=== PATIENT | female | born 1995 | race Caucasian/White ===

== ENCOUNTER 2017-08-25 22:34 | Emergency (ER) | payer MEDICAID ==
[2017-08-25 23:32] LABS: BASOPHILS 0.3 % (0-2); EOSINOPHILS 2.6 % (0-7); HEMATOCRIT 37.3 % (36.0-48.0); HEMOGLOBIN 12.5 g/dL (12-16); IMMATURE GRANULOCYTES 0.2 % (0-5); LYMPHOCYTES 28.6 % (15-50); MCH 28.5 pg (26.0-34.0); MCHC 33.5 g/dL (31.0-37.0); MCV 85.2 fL (80.0-100.0); MEAN PLATELET VOLUME 8.8 fL (7.4-10.4); MONOCYTES 10.8 % (2-11); NEUTROPHILS 57.5 % (40-80); PLATELET COUNT 292 10x3/uL (130-400); RBC 4.38 10x6/uL (4.00-5.40); RDW 13.4 % (11.5-14.5); WBC 11.8 10x3/uL (4.8-10.8)
[2017-08-25 23:47] LABS: ALBUMIN 3.8 g/dL (3.4-5.0); ALKALINE PHOSPHATASE 59 U/L (46-116); ALT (SGPT) 18 U/L (10-68); BILIRUBIN - TOTAL 0.21 mg/dL (0.2-1.3); CALC OSMOLALITY 272 mosm/kg (275-300); CARBON DIOXIDE 23.7 mmol/L (21.0-32.0); CHLORIDE - SERUM 103 mmol/L (98-107); CREATININE - SERUM 0.7 mg/dL (0.6-1.3); GLUCOSE 98 mg/dL (74-106); POTASSIUM - SERUM 3.4 mmol/L (3.5-5.1); PROTEIN - SERUM 7.4 g/dL (6.4-8.2); SODIUM 137 mmol/L (136-145); UREA NITROGEN 10 mg/dL (7-18); eGFR NON AFRICAN AMERICAN > 90 mL/min (90-120)
[2017-08-26 00:13] LABS: HCG - QUANTITATIVE (MATERNAL) 41874 mIU/mL
== END 2017-08-26 01:00 | disposition home or self-care (01) ==
LOC: D.ER 22:34
PROVIDERS: Emergency Medicine
DX: O26.891 Other specified pregnancy related conditions, first trimester (principal); Z3A.00 Weeks of gestation of pregnancy not specified; R10.9 Unspecified abdominal pain; F17.200 Nicotine dependence, unspecified, uncomplicated

== ENCOUNTER 2017-09-25 22:57 | Emergency (ER) | payer MEDICAID ==
[2017-09-25 23:41] LABS: HEMATOCRIT 38.7 % (36.0-48.0); HEMOGLOBIN 13.3 g/dL (12-16); MCH 28.8 pg (26.0-34.0); MCHC 34.4 g/dL (31.0-37.0); MCV 83.8 fL (80.0-100.0); MEAN PLATELET VOLUME 8.3 fL (7.4-10.4); NEUTROPHILS 66.3 % (40-80); PLATELET COUNT 312 10x3/uL (130-400); RBC 4.62 10x6/uL (4.00-5.40); WBC 12.9 10x3/uL (4.8-10.8)
[2017-09-25 23:48] LABS: APPEARANCE SLT CLOUDY (CLEAR); BILIRUBIN NEGATIVE (NEGATIVE); COLOR YELLOW (YELLOW); GLUCOSE NEGATIVE (NEGATIVE); KETONE NEGATIVE (NEGATIVE); NITRITE NEGATIVE (NEGATIVE); PROTEIN TRACE mg/dL (NEGATIVE); UROBILINOGEN NORMAL (NORMAL)
[2017-09-25 23:49] LABS: BACTERIA MODERATE /hpf (NONE SEEN); EPITHELIAL CELLS 0-5 /hpf (0-5); RED CELLS - URINE 0-5 /hpf (0-5)
[2017-09-25 23:50] LABS: MUCUS <1+ /lpf (NONE SEEN)
[2017-09-25 23:51] LABS: HCG SERUM POSITIVE (NEGATIVE)
[2017-09-25 23:52] LABS: ALBUMIN 3.8 g/dL (3.4-5.0); ALKALINE PHOSPHATASE 63 U/L (46-116); ALT (SGPT) 18 U/L (10-68); BILIRUBIN - TOTAL 0.21 mg/dL (0.2-1.3); CALC OSMOLALITY 275 mosm/kg (275-300); CALCIUM 9.1 mg/dL (8.5-10.1); CARBON DIOXIDE 24.8 mmol/L (21.0-32.0); CHLORIDE - SERUM 102 mmol/L (98-107); CREATININE - SERUM 0.6 mg/dL (0.6-1.3); GLUCOSE 88 mg/dL (74-106); POTASSIUM - SERUM 3.6 mmol/L (3.5-5.1); PROTEIN - SERUM 7.8 g/dL (6.4-8.2); SODIUM 138 mmol/L (136-145); UREA NITROGEN 16 mg/dL (7-18); eGFR NON AFRICAN AMERICAN > 90 mL/min (90-120)
[2017-09-26 00:15] LABS: HCG - QUANTITATIVE (MATERNAL) 44350 mIU/mL
== END 2017-09-26 00:22 | disposition home or self-care (01) ==
LOC: D.ER 22:57
PROVIDERS: Emergency Medicine
DX: O23.41 Unspecified infection of urinary tract in pregnancy, first trimester (principal); Z3A.09 9 weeks gestation of pregnancy

== ENCOUNTER → 2018-01-16 11:36 | Outpatient (CLI) | payer MEDICAID | END | disposition home or self-care (01) | LOC: D.CN 11:30 | DX: R07.9 Chest pain, unspecified (principal) ==

== ENCOUNTER → 2018-03-13 10:39 | Outpatient (CLI) | payer MEDICAID | END | disposition home or self-care (01) | LOC: D.LDO 10:39 | DX: O26.893 Other specified pregnancy related conditions, third trimester (principal); Z3A.34 34 weeks gestation of pregnancy ==

== ENCOUNTER → 2018-04-03 12:19 | Outpatient (CLI) | payer MEDICAID ==
[2018-04-03 13:27] LABS: APPEARANCE HAZY (CLEAR); BILIRUBIN NEGATIVE (NEGATIVE); COLOR YELLOW (YELLOW); GLUCOSE NEGATIVE (NEGATIVE); KETONE NEGATIVE (NEGATIVE); NITRITE NEGATIVE (NEGATIVE); PROTEIN NEGATIVE (NEGATIVE)
[2018-04-03 13:28] LABS: BACTERIA MODERATE /hpf (NONE SEEN); EPITHELIAL CELLS 0-5 /hpf (0-5); WHITE CELLS - URINE 0-5 /hpf (0-5)
== END | disposition home or self-care (01) ==
LOC: D.LDO 12:19
PROVIDERS: Obstetrics & Gynecology
DX: O26.893 Other specified pregnancy related conditions, third trimester (principal); Z3A.37 37 weeks gestation of pregnancy

== ENCOUNTER → 2018-04-07 01:08 | Outpatient (CLI) | payer MEDICAID ==
[2018-04-07 01:43] LABS: APPEARANCE CLEAR (CLEAR); COLOR YELLOW (YELLOW)
[2018-04-07 01:44] LABS: BILIRUBIN NEGATIVE (NEGATIVE); GLUCOSE NEGATIVE (NEGATIVE); KETONE NEGATIVE (NEGATIVE); NITRITE NEGATIVE (NEGATIVE); PROTEIN NEGATIVE (NEGATIVE); SPECIFIC GRAVITY 1.025 (1.005-1.020); UROBILINOGEN NORMAL (NORMAL)
[2018-04-07 01:47] LABS: UDS - AMPHET NEGATIVE QUAL (NEGATIVE); UDS - BARB NEGATIVE QUAL (NEGATIVE); UDS - BENZO NEGATIVE QUAL (NEGATIVE); UDS - COCAINE NEGATIVE QUAL (NEGATIVE); UDS - OPIATE NEGATIVE QUAL (NEGATIVE); UDS - PCP NEGATIVE QUAL (NEGATIVE); UDS - THC NEGATIVE QUAL (NEGATIVE)
== END | disposition home or self-care (01) ==
LOC: D.LDO 01:08
PROVIDERS: Obstetrics & Gynecology
DX: O26.893 Other specified pregnancy related conditions, third trimester (principal); Z3A.37 37 weeks gestation of pregnancy

== ENCOUNTER → 2018-04-10 12:04 | Outpatient (CLI) | payer MEDICAID ==
[~2018-04-10 12:04] MED LIST: HYDROCODON-ACE1 EAC7 PO; IBUPROFEN600 MG PO
[2018-04-24 06:18] VITALS: BMI 29.2
== END | disposition home or self-care (01) ==
LOC: D.LDO 12:04
DX: O26.893 Other specified pregnancy related conditions, third trimester (principal); Z3A.37 37 weeks gestation of pregnancy

== ENCOUNTER 2018-04-24 05:42 | Inpatient (IN) | payer MEDICAID ==
[~2018-04-24] VITALS: Ht 170.2 cm; Wt 84.5 kg
--- NOTE | ~2018-04-24 | DS ---
PATIENT:TRISH MATIAS :89 MEDICAL RECORD: [id number] DISCHARGE SUMMARY ADMISSION DATE: 04/24/18 DISCHARGE DATE: 04/26/18 DATE OF ADMISSION: 04/24/2018 HOSPITAL COURSE: A 22-year-old admitted for induction of labor at 40 weeks. The patient was noted to be A negative, group B strep negative, and rubella immune. PAST MEDICAL HISTORY: The patient with past medical history significant for migraines, history of chlamydia and marijuana abuse. PAST SURGICAL HISTORY: The patient reported no significant surgical history. ALLERGIES: No known allergies. FAMILY HISTORY: Significant for a parent with a neurologic disorder, not otherwise specified. A sibling had a natural child with hypertension. SOCIAL HISTORY: The patient reports social history significant for being a former tobacco user. PHYSICAL EXAMINATION: VITAL SIGNS: On initial evaluation, the patient was noted to be slightly hypertensive with blood pressure of 157/89. The patient was afebrile. LUNGS: Clear to auscultation. CARDIOVASCULAR: Regular rate and rhythm. PELVIC: Uterus was appropriately sized and nontender. EXTREMITIES: Lower extremities were free of Homans sign or erythema. Fetus category 1 tracing. LABORATORY DATA: Admit hemoglobin was found to be 10.4, platelet count of 269. Urinalysis revealed no protein. ASSESSMENT AND PLAN: 1. At that time, term intrauterine at 40 weeks. 2. The patient desires induction of labor. 3. History of migraines. 4. Rh negative. 5. History of chlamydia infection during this . Plan at that time for Pitocin induction of labor, AROM when appropriate, category 1 tracing, and further monitoring of blood pressures. The patient progressed to 4 cm and artificial rupture of membranes was performed. The patient remained with a category 1 tracing. The patient remained on Pitocin and progressed to second stage of labor, at which point she had a normal spontaneous vaginal delivery over an intact perineum. Delivery note is as on the chart. The patient did well overnight on day #1, tolerating p.o. pain meds, general diet, ambulating well and voiding freely. On the morning of day #1, the patient was afebrile. Vital signs were stable. The uterus was infraumbilical and nontender. The patient was tolerating general diet and p.o. pain meds, ambulating well, voiding freely. Hemoglobin was noted to be stable. The patient continued to improve overnight on day #1. On the morning of day #2, the patient remained afebrile and vital signs were stable. DISCHARGE SUMMARY REPORT [id number] TRISH MATIAS Uterus remained infraumbilical and nontender with minimal lochia. The patient was discharged on day #2 with instructions to follow up in 4 weeks. TRANSINT:[id number] Voice Confirmation ID: [id number] DOCUMENT ID: [id number] MEL HU MD at 1304 CC: [id number] DICTATION DATE: 06/09/18 0548 CARVER AND CHECKERER SPECIALS: 06/09/18 1521 DIS IN 04/26/18 [id number] [place] [address]
[2018-04-24 06:18] VITALS: BP 157/89; Ht 170.2 cm; Wt 84.5 kg
[2018-04-24 06:40] LABS: HEMATOCRIT 31.8 % (36.0-48.0); HEMOGLOBIN 10.4 g/dL (12-16); MCHC 32.7 g/dL (31.0-37.0); MCV 85.5 fL (80.0-100.0); MEAN PLATELET VOLUME 10.4 fL (7.4-10.4); RBC 3.72 10x6/uL (4.00-5.40); RDW 12.6 % (11.5-14.5); WBC 12.8 10x3/uL (4.8-10.8)
[2018-04-24 06:49] LABS: UDS - AMPHET NEGATIVE QUAL (NEGATIVE); UDS - BARB NEGATIVE QUAL (NEGATIVE); UDS - BENZO NEGATIVE QUAL (NEGATIVE); UDS - COCAINE NEGATIVE QUAL (NEGATIVE); UDS - OPIATE NEGATIVE QUAL (NEGATIVE); UDS - PCP NEGATIVE QUAL (NEGATIVE); UDS - THC NEGATIVE QUAL (NEGATIVE)
[2018-04-24 07:35] LABS: APPEARANCE HAZY (CLEAR); BACTERIA MODERATE /hpf (NONE SEEN); BILIRUBIN NEGATIVE (NEGATIVE); COLOR YELLOW (YELLOW); EPITHELIAL CELLS 0-5 /hpf (0-5); GLUCOSE NEGATIVE (NEGATIVE); KETONE NEGATIVE (NEGATIVE); MUCUS <1+ /lpf (NONE SEEN); NITRITE NEGATIVE (NEGATIVE); PROTEIN NEGATIVE (NEGATIVE); RED CELLS - URINE OCC /hpf (0-5); SPECIFIC GRAVITY 1.015 (1.005-1.020); UROBILINOGEN NORMAL (NORMAL); WHITE CELLS - URINE 0-5 /hpf (0-5)
[2018-04-25 05:34] LABS: BASOPHILS 0.2 % (0-2); EOSINOPHILS 1.2 % (0-7); HEMATOCRIT 27.1 % (36.0-48.0); HEMOGLOBIN 8.9 g/dL (12-16); IMMATURE GRANULOCYTES 0.2 % (0-5); LYMPHOCYTES 18.5 % (15-50); MCH 27.9 pg (26.0-34.0); MCHC 32.8 g/dL (31.0-37.0); MEAN PLATELET VOLUME 10.6 fL (7.4-10.4); MONOCYTES 13.5 % (2-11); NEUTROPHILS 66.4 % (40-80); PLATELET COUNT 222 10x3/uL (130-400); RBC 3.19 10x6/uL (4.00-5.40); RDW 12.6 % (11.5-14.5); WBC 13.1 10x3/uL (4.8-10.8)
[2018-04-25 07:33] LABS: RAPID PLASMA REAGIN Non Reactive (Non Reactive)
[2018-04-25 07:42] VITALS: BP 114/78
[2018-04-25 11:48] VITALS: BP 130/81
[2018-04-25 19:41] VITALS: BP 126/81
[2018-04-26 07:10] VITALS: BP 127/72
[2018-04-26] MEDS ORDERED: HYDROCODON-ACE1 EAC7 PO (09:14)
[2018-04-26] MEDS ORDERED: IBUPROFEN600 MG PO (09:15)
== END 2018-04-26 12:52 | disposition home or self-care (01) | DRG 775 ==
LOC: D.LD 05:42
PROVIDERS: Obstetrics & Gynecology
PROC: 10E0XZZ Delivery of Products of Conception, External Approach (ICD-10-PCS; principal; 2018-04-24)
PROC: 10907ZC Drainage of Amniotic Fluid, Therapeutic from Products of Conception, Via Natural or Artificial Opening (ICD-10-PCS; 2018-04-24)
PROC: 3E033VJ Introduction of Other Hormone into Peripheral Vein, Percutaneous Approach (ICD-10-PCS; 2018-04-24)
DX: O99.354 Diseases of the nervous system complicating childbirth (principal); Z3A.40 40 weeks gestation of pregnancy; Z37.0 Single live birth; A56.8 Sexually transmitted chlamydial infection of other sites; O26.893 Other specified pregnancy related conditions, third trimester; Z67.91 Unspecified blood type, Rh negative; Z87.891 Personal history of nicotine dependence

== ENCOUNTER 2019-04-04 14:23 | Emergency (ER) | payer MEDICAID ==
[~2019-04-04] VITALS: Ht 170.2 cm; Wt 68.2 kg
[2019-04-04 14:56] VITALS: Ht 170.2 cm; Wt 68.2 kg
[2019-04-04 15:26] LABS: BASOPHILS 0.3 % (0-2); EOSINOPHILS 3.9 % (0-7); HEMOGLOBIN 12.1 g/dL (12-16); IMMATURE GRANULOCYTES 0.1 % (0-5); MCH 27.5 pg (26.0-34.0); MCHC 32.7 g/dL (31.0-37.0); MCV 84.1 fL (80.0-100.0); MEAN PLATELET VOLUME 8.8 fL (7.4-10.4); MONOCYTES 13.1 % (2-11); NEUTROPHILS 59.6 % (40-80); WBC 8.8 10x3/uL (4.8-10.8)
[2019-04-04 15:27] LABS: PLATELET COUNT 298 10x3/uL (130-400)
[2019-04-04 15:30] LABS: APPEARANCE HAZY (CLEAR); BILIRUBIN NEGATIVE (NEGATIVE); COLOR STRAW (YELLOW); GLUCOSE NEGATIVE (NEGATIVE); HCG SERUM NEGATIVE (NEGATIVE); KETONE NEGATIVE (NEGATIVE); NITRITE NEGATIVE (NEGATIVE); PROTEIN TRACE mg/dL (NEGATIVE); UROBILINOGEN NORMAL (NORMAL)
[2019-04-04 15:32] LABS: AMORPHOUS SEDIMENT <1+ /lpf (NONE SEEN); BACTERIA MANY /hpf (NONE SEEN); EPITHELIAL CELLS 0-5 /hpf (0-5); MUCUS >1+ /lpf (NONE SEEN)
[2019-04-04 15:38] LABS: ALBUMIN 3.7 g/dL (3.4-5.0); ALKALINE PHOSPHATASE 80 U/L (46-116); ALT (SGPT) 15 U/L (10-68); BILIRUBIN - TOTAL 0.18 mg/dL (0.2-1.3); CALC OSMOLALITY 282 mosm/kg (275-300); CALCIUM 8.7 mg/dL (8.5-10.1); CARBON DIOXIDE 26.7 mmol/L (21.0-32.0); CHLORIDE - SERUM 106 mmol/L (98-107); CREATININE - SERUM 0.8 mg/dL (0.6-1.3); GLUCOSE 116 mg/dL (74-106); POTASSIUM - SERUM 3.8 mmol/L (3.5-5.1); PROTEIN - SERUM 7.4 g/dL (6.4-8.2); SODIUM 141 mmol/L (136-145); UREA NITROGEN 16 mg/dL (7-18); eGFR NON AFRICAN AMERICAN > 90 mL/min (90-120)
[2019-04-04] MEDS ORDERED: MACROBID100 MG PO (17:34)
[2019-04-04 17:59] VITALS: BP 118/76
== END 2019-04-04 18:01 | disposition home or self-care (01) ==
LOC: D.ER 14:23
PROVIDERS: Family Medicine
DX: N39.0 Urinary tract infection, site not specified (principal); N93.9 Abnormal uterine and vaginal bleeding, unspecified

== ENCOUNTER 2019-05-18 13:17 | Emergency (ER) | payer MEDICAID ==
[2019-04-04 14:56] VITALS: Ht 170.2 cm; Wt 71.8 kg
[~2019-05-18] VITALS: Ht 170.2 cm; Wt 71.8 kg
[~2019-05-18 13:17] MED LIST changes: +MACROBID100 MG PO
[2019-05-18] MEDS ORDERED: FIORICET/ESGIC1 TAB PO (14:29)
[2019-05-18] MEDS ORDERED: ZOFRAN ODT4 MG/UDTAB PO (14:29)
[2019-05-18 15:10] VITALS: BP 125/76
== END 2019-05-18 15:11 | disposition home or self-care (01) ==
LOC: D.ER 13:17
DX: R51 Headache (principal)

== ENCOUNTER 2019-06-03 13:48 | Emergency (ER) | payer MEDICAID ==
[~2019-06-03] VITALS: Ht 170.2 cm; Wt 69.1 kg
[~2019-06-03 13:48] MED LIST changes: +FIORICET/ESGIC1 TAB PO; +ZOFRAN ODT4 MG/UDTAB PO
[2019-06-03 14:21] VITALS: Ht 170.2 cm; Wt 69.1 kg
[2019-06-03 14:54] LABS: BASOPHILS 0.2 % (0-2); EOSINOPHILS 3.7 % (0-7); HEMATOCRIT 35.4 % (36.0-48.0); HEMOGLOBIN 11.8 g/dL (12-16); IMMATURE GRANULOCYTES 0.3 % (0-5); LYMPHOCYTES 34.4 % (15-50); MCH 27.4 pg (26.0-34.0); MCHC 33.3 g/dL (31.0-37.0); MCV 82.3 fL (80.0-100.0); MEAN PLATELET VOLUME 8.8 fL (7.4-10.4); MONOCYTES 9.5 % (2-11); NEUTROPHILS 51.9 % (40-80); PLATELET COUNT 308 10x3/uL (130-400)
[2019-06-03 15:03] LABS: APTT 28.7 SECONDS (22.8-39.4); INR 1.06 (0.85-1.17); PROTIME 13.3 SECONDS (11.6-15.0)
[2019-06-03 15:09] LABS: ALBUMIN 3.7 g/dL (3.4-5.0); ALKALINE PHOSPHATASE 95 U/L (46-116); ALT (SGPT) 21 U/L (10-68); BILIRUBIN - TOTAL 0.14 mg/dL (0.2-1.3); CALC OSMOLALITY 281 mosm/kg (275-300); CARBON DIOXIDE 28.9 mmol/L (21.0-32.0); CHLORIDE - SERUM 106 mmol/L (98-107); CREATININE - SERUM 0.7 mg/dL (0.6-1.3); GLUCOSE 82 mg/dL (74-106); POTASSIUM - SERUM 3.9 mmol/L (3.5-5.1); PROTEIN - SERUM 7.3 g/dL (6.4-8.2); SODIUM 141 mmol/L (136-145); UREA NITROGEN 17 mg/dL (7-18); eGFR NON AFRICAN AMERICAN > 90 mL/min (90-120)
[2019-06-03 15:20] LABS: CKMB 0.1 U/L (0.0-3.6); CREATINE KINASE 40 UL (21-215)
[2019-06-03 15:30] LABS: TROPONIN-I < 0.017 ng/mL (0.000-0.060)
[2019-06-03 16:50] VITALS: BP 101/62
== END 2019-06-03 16:50 | disposition home or self-care (01) ==
LOC: D.ER 13:48
PROVIDERS: Family Medicine
DX: R00.2 Palpitations (principal); F41.9 Anxiety disorder, unspecified

== ENCOUNTER 2020-01-19 15:48 | Emergency (ER) | payer MEDICAID ==
[~2020-01-19] VITALS: Ht 170.2 cm; Wt 71.4 kg
[2020-01-19 15:56] VITALS: Ht 170.2 cm; Wt 71.4 kg
[2020-01-19 16:14] LABS: BASOPHILS 0.4 % (0-2); EOSINOPHILS 2.5 % (0-7); HEMATOCRIT 38.6 % (36.0-48.0); HEMOGLOBIN 12.7 g/dL (12-16); IMMATURE GRANULOCYTES 0.2 % (0-5); LYMPHOCYTES 27.4 % (15-50); MCH 27.5 pg (26.0-34.0); MCHC 32.9 g/dL (31.0-37.0); MCV 83.7 fL (80.0-100.0); MEAN PLATELET VOLUME 8.3 fL (7.4-10.4); NEUTROPHILS 58.5 % (40-80); RBC 4.61 10x6/uL (4.00-5.40); RDW 13.2 % (11.5-14.5); WBC 12.6 10x3/uL (4.8-10.8)
[2020-01-19 16:21] LABS: PLATELET COUNT 375 10x3/uL (130-400)
[2020-01-19 16:29] LABS: HCG SERUM POSITIVE (NEGATIVE)
[2020-01-19 16:30] LABS: CALC OSMOLALITY 281 mosm/kg (275-300); CALCIUM 8.9 mg/dL (8.5-10.1); CARBON DIOXIDE 26.7 mmol/L (21.0-32.0); CHLORIDE - SERUM 104 mmol/L (98-107); CREATININE - SERUM 0.8 mg/dL (0.6-1.3); GLUCOSE 87 mg/dL (74-106); POTASSIUM - SERUM 3.5 mmol/L (3.5-5.1); SODIUM 141 mmol/L (136-145); UREA NITROGEN 17 mg/dL (7-18); eGFR NON AFRICAN AMERICAN > 90 mL/min (90-120)
[2020-01-19 16:42] LABS: ALKALINE PHOSPHATASE 82 U/L (30-120); ALT (SGPT) 27 U/L (10-68); BILIRUBIN - TOTAL 0.22 mg/dL (0.2-1.3); HCG - QUANTITATIVE (MATERNAL) 701 mIU/mL; PROTEIN - SERUM 7.8 g/dL (6.4-8.2)
[2020-01-19 17:13] LABS: BACTERIA FEW /hpf (NEGATIVE); BILIRUBIN NEGATIVE (NEGATIVE); EPITHELIAL CELLS OCC /hpf (0-5); GLUCOSE NEGATIVE (NEGATIVE); KETONE NEGATIVE (NEGATIVE); NITRITE NEGATIVE (NEGATIVE); RED CELLS - URINE 0-5 /hpf (0-5); SPECIFIC GRAVITY 1.015 (1.005-1.020); UROBILINOGEN NORMAL (NORMAL); WHITE CELLS - URINE OCC /hpf (NEGATIVE)
[2020-01-19 18:11] VITALS: BP 132/84
== END 2020-01-19 18:11 | disposition home or self-care (01) ==
LOC: D.ER 15:48
PROVIDERS: Family Medicine
DX: O26.899 Other specified pregnancy related conditions, unspecified trimester (principal); Z3A.00 Weeks of gestation of pregnancy not specified; N93.9 Abnormal uterine and vaginal bleeding, unspecified; R11.0 Nausea

== ENCOUNTER 2020-07-06 21:55 | Emergency (ER) | payer MEDICAID ==
[~2020-07-06] VITALS: Ht 170.2 cm; Wt 84.5 kg
[2020-07-06 22:29] VITALS: Ht 170.2 cm; Wt 84.5 kg
[2020-07-06 23:00] LABS: BASOPHILS 0.1 % (0-2); EOSINOPHILS 5.1 % (0-7); HEMOGLOBIN 11.3 g/dL (12-16); IMMATURE GRANULOCYTES 0.3 % (0-5); LYMPHOCYTES 16.9 % (15-50); MCH 27.7 pg (26.0-34.0); MCHC 33.2 g/dL (31.0-37.0); MCV 83.3 fL (80.0-100.0); MEAN PLATELET VOLUME 8.4 fL (7.4-10.4); MONOCYTES 9.4 % (2-11); NEUTROPHILS 68.2 % (40-80); RBC 4.08 10x6/uL (4.00-5.40); RDW 13.4 % (11.5-14.5); WBC 13.6 10x3/uL (4.8-10.8)
[2020-07-06 23:01] LABS: PLATELET COUNT 264 10x3/uL (130-400)
[2020-07-06 23:40] LABS: BILIRUBIN NEGATIVE (NEGATIVE); KETONE NEGATIVE (NEGATIVE); NITRITE NEGATIVE (NEGATIVE); UROBILINOGEN NORMAL (NORMAL)
[2020-07-06 23:48] LABS: CALC OSMOLALITY 269 mosm/kg (275-300); CALCIUM 8.1 mg/dL (8.5-10.1); CARBON DIOXIDE 24.6 mmol/L (21.0-32.0); CHLORIDE - SERUM 104 mmol/L (98-107); CREATININE - SERUM 0.7 mg/dL (0.6-1.3); GLUCOSE 110 mg/dL (74-106); POTASSIUM - SERUM 3.3 mmol/L (3.5-5.1); SODIUM 135 mmol/L (136-145); UREA NITROGEN 10 mg/dL (7-18); eGFR NON AFRICAN AMERICAN > 90 mL/min (90-120)
[2020-07-07 00:10] LABS: ALBUMIN 3.1 g/dL (3.4-5.0); ALKALINE PHOSPHATASE 69 U/L (30-120); ALT (SGPT) 17 U/L (10-68); BILIRUBIN - TOTAL 0.09 mg/dL (0.2-1.3); HCG - QUANTITATIVE (MATERNAL) 39223 mIU/mL; PROTEIN - SERUM 6.8 g/dL (6.4-8.2)
[2020-07-07 00:36] LABS: C-REACTIVE PROTEIN 2.3 mg/dL (0.0-0.9)
[2020-07-07 01:14] VITALS: BP 112/71
== END 2020-07-07 01:12 | disposition home or self-care (01) ==
LOC: D.ER 21:55
PROVIDERS: Family Medicine
DX: O26.892 Other specified pregnancy related conditions, second trimester (principal); M54.9 Dorsalgia, unspecified; Z3A.14 14 weeks gestation of pregnancy; R10.33 Periumbilical pain; R55 Syncope and collapse; R05 Cough; R11.10 Vomiting, unspecified; R07.9 Chest pain, unspecified